=== PATIENT | female | born 1980 | race Caucasian/White ===

== ENCOUNTER 2016-10-24 17:43 | Emergency (ER) | payer BC ==
[~2016-10-24] VITALS: Ht 172.7 cm; Wt 136.1 kg
[~2016-10-24 17:43] MED LIST: AUGMENTIN 500 M1 TAB PO; AUGMENTIN 875875 MG PO; CATAFLAM50 MG PO; CLINDAMYCIN HC300 MG PO; CLINDAMYCIN150 MG PO; FLEXERIL10 MG PO; FLEXERIL5 MG PO; HYDROCODONE BIT1 T11 PO; IBU-8800 MG PO; LIDOCAINE HCL100 M1 MM; MACROBID100 M1 PO; MOTRIN800 MG PO; NAPROSYN500 MG PO; PENICILLIN VK500 MG PO; Peridex 473 ML473 ML PO; ROBAXIN750 MG PO; SEROQUEL300 MG PO; TRAMADOL HCL50 MG PO; VOLTAREN50 M1 PO; ZOLOFT100 MG PO; [UNRECOGNIZED DRUG - OTHER] T
[2016-10-24] MEDS ORDERED: 'PARAFON FORTE500 M1 PO (18:13)
[2016-10-24] MEDS ORDERED: NAPROSYN500 MG PO (18:13)
== END 2016-10-24 20:38 | disposition home or self-care (01) ==
LOC: ED 17:43
DX: M54.42 Lumbago with sciatica, left side (principal); R03.0 Elevated blood-pressure reading, without diagnosis of hypertension; F17.200 Nicotine dependence, unspecified, uncomplicated; Z88.2 Allergy status to sulfonamides; Z88.8 Allergy status to other drugs, medicaments and biological substances; Z91.030 Bee allergy status

== ENCOUNTER 2019-02-18 17:02 | Emergency (ER) | payer BC ==
[~2019-02-18] VITALS: Ht 170.1 cm; Wt 145.1 kg
[~2019-02-18 17:02] MED LIST changes: +'PARAFON FORTE500 M1 PO
[2019-02-18] MEDS ORDERED: PREDNISONE50 MG PO (17:38)
[2019-02-18] MEDS ORDERED: CYCLOBENZAPRINE10 MG PO (17:38)
== END 2019-02-18 17:49 | disposition home or self-care (01) ==
LOC: ED 17:02
DX: S39.012A Strain of muscle, fascia and tendon of lower back, initial encounter (principal); Z91.030 Bee allergy status; Z88.8 Allergy status to other drugs, medicaments and biological substances; Z88.2 Allergy status to sulfonamides; Z79.899 Other long term (current) drug therapy; Z79.2 Long term (current) use of antibiotics; X50.1XXA Overexertion from prolonged static or awkward postures, initial encounter; Y93.89 Activity, other specified; Y92.69 Other specified industrial and construction area as the place of occurrence of the external cause; Y99.8 Other external cause status

== ENCOUNTER 2019-10-17 20:40 | Emergency (ER) | payer BC ==
[~2019-10-17] VITALS: Ht 167.6 cm; Wt 147.0 kg
[~2019-10-17 20:40] MED LIST changes: +CYCLOBENZAPRINE10 MG PO; +PREDNISONE50 MG PO
[2019-10-17] MEDS ORDERED: Motrin,Rufen800 MG PO (21:09)
[2019-10-17] MEDS ORDERED: CEFADROXIL500 M1 PO (21:09)
[2019-10-17] MEDS ORDERED: BACITRACIN28.4 GM T (21:15)
== END 2019-10-17 21:19 | disposition home or self-care (01) ==
LOC: ED 20:40
DX: T23.132A Burn of first degree of multiple left fingers (nail), not including thumb, initial encounter (principal); F17.200 Nicotine dependence, unspecified, uncomplicated; Z91.030 Bee allergy status; Z88.2 Allergy status to sulfonamides; Z88.8 Allergy status to other drugs, medicaments and biological substances; X14.1XXA Other contact with hot air and other hot gases, initial encounter; Y93.89 Activity, other specified; Y92.89 Other specified places as the place of occurrence of the external cause; Y99.0 Civilian activity done for income or pay

== ENCOUNTER 2020-01-08 01:48 | Emergency (ER) | payer BC ==
[~2020-01-08] VITALS: Ht 167.6 cm; Wt 147.0 kg
[~2020-01-08 01:48] MED LIST changes: +BACITRACIN28.4 GM T; +CEFADROXIL500 M1 PO; +Motrin,Rufen800 MG PO
[2020-01-08] MEDS ORDERED: ROBAXIN-750750 MG PO (04:57)
== END 2020-01-08 05:13 | disposition home or self-care (01) ==
LOC: ED 01:48
DX: S16.1XXA Strain of muscle, fascia and tendon at neck level, initial encounter (principal); S50.812A Abrasion of left forearm, initial encounter; S80.811A Abrasion, right lower leg, initial encounter; T14.8XXA Other injury of unspecified body region, initial encounter; Z79.2 Long term (current) use of antibiotics; Z79.899 Other long term (current) drug therapy; V89.2XXA Person injured in unspecified motor-vehicle accident, traffic, initial encounter; Y93.89 Activity, other specified; Y92.89 Other specified places as the place of occurrence of the external cause; Y99.8 Other external cause status

== ENCOUNTER → 2021-06-01 | Outpatient (CLI) | payer BC ==
[~2021-06-01] MED LIST changes: +ROBAXIN-750750 MG PO
== END | disposition home or self-care (01) ==
LOC: US 05-16 13:00
PROVIDERS: ATTEND Family Medicine
DX: M25.431 Effusion, right wrist (principal)

== ENCOUNTER 2022-08-02 08:31 | Emergency (ER) | payer BC ==
[2022-08-02 09:14] LABS: BILIRUBIN Negative (Negative); BLOOD 3+ (Negative); CLARITY Cloudy (Clear); COLOR Red (Yellow); GLUCOSE Negative (Negative); KETONE Trace (Negative); LEUKO ESTERASE Trace (Negative); NITRITE Positive (Negative); UROBILINOGEN 0.2 E.U./dl (0.0-1.0)
[2022-08-02 09:41] LABS: RBC TNTC rbc/hpf (0-2)
[2022-08-02 09:54] LABS: BASO # 0.1 10*3/uL (0.0-0.1); BASO % 0.6 % (0.0-1.0); EOS % 0.1 % (1.0-4.0); HEMATOCRIT 45.7 % (37.0-47.0); LYMPH # 2.6 10*3/uL (1.3-4.4); LYMPH % 21.4 % (27.0-41.0); MEAN CORPUSCULAR HGB 26.9 pg (27.0-31.0); MEAN CORPUSCULAR HGB CONC 32.8 g/dl (33.0-37.0); MEAN PLATELET VOLUME 10.1 fl (9.6-12.3); MONO # 0.6 10*3/uL (0.1-1.0); MONO % 4.5 % (3.0-9.0); NEUT % 73.1 % (47.0-73.0); PLATELET COUNT AUTOMATED 333 10*3/uL (130-400); RED BLOOD COUNT 5.57 10*6/uL (4.10-5.10); RED CELL DISTRI WIDTH 14.1 % (0-14.5); WHITE BLOOD COUNT 12.4 10*3/uL (4.8-10.8)
[2022-08-02 10:13] LABS: ACT PARTIAL THROMBO TIME 31.4 SECONDS (20.0-32.1)
[2022-08-02 10:19] LABS: ALKALINE PHOSPHATASE 130 U/L (46-116); BUN 13 mg/dl (9-23); CHLORIDE 104 mmol/L (98-107); POTASSIUM 4.2 mmol/L (3.4-5.1); SGPT/ALT 30 U/L (10-49); TOTAL PROTEIN 7.3 gm/dL (6.0-8.0)
[2022-08-02 10:24] LABS: BETA-HCG, QUANT < 3.0 mIU/mL (3-10)
[2022-08-02] MEDS ORDERED: MACROBID100 M1 PO (12:44)
== END 2022-08-02 13:15 | disposition home or self-care (01) ==
LOC: ED 08:31
PROVIDERS: Emergency Medicine
DX: N93.8 Other specified abnormal uterine and vaginal bleeding (principal); N39.0 Urinary tract infection, site not specified; Z91.030 Bee allergy status; Z88.2 Allergy status to sulfonamides; Z88.8 Allergy status to other drugs, medicaments and biological substances; Z98.890 Other specified postprocedural states; F32.A Depression, unspecified

== ENCOUNTER → 2023-11-11 | Outpatient (CLI) | payer BC | END | disposition home or self-care (01) | LOC: MAMMO 09:39 | PROVIDERS: ATTEND Obstetrics & Gynecology | DX: Z12.31 Encounter for screening mammogram for malignant neoplasm of breast (principal); N92.0 Excessive and frequent menstruation with regular cycle ==

== ENCOUNTER 2023-12-26 21:33 | Emergency (ER) | payer BC ==
[2023-12-26 22:04] LABS: BASO # 0.1 10*3/uL (0.0-0.1); BASO % 0.7 % (0.0-1.0); EOS % 0.2 % (1.0-4.0); HEMATOCRIT 43.5 % (37.0-47.0); LYMPH # 3.4 10*3/uL (1.3-4.4); LYMPH % 27.9 % (27.0-41.0); MEAN CELL VOLUME 81.8 fl (81.0-99.0); MEAN CORPUSCULAR HGB 26.7 pg (27.0-31.0); MEAN CORPUSCULAR HGB CONC 32.6 g/dl (33.0-37.0); MEAN PLATELET VOLUME 9.9 fl (9.6-12.3); MONO # 0.7 10*3/uL (0.1-1.0); MONO % 5.4 % (3.0-9.0); NEUT % 65.3 % (47.0-73.0); PLATELET COUNT AUTOMATED 360 10*3/uL (130-400); RED BLOOD COUNT 5.32 10*6/uL (4.10-5.10); WHITE BLOOD COUNT 12.3 10*3/uL (4.8-10.8)
[2023-12-26 22:30] LABS: BUN 11 mg/dl (9-23); CHLORIDE 104 mmol/L (98-107); POTASSIUM 3.9 mmol/L (3.4-5.1)
[2023-12-26] MEDS ORDERED: TRINTELLIX20 MG PO (22:33)
[2023-12-26] MEDS ORDERED: QUETIAPINE FUM300 M1 PO (22:33)
[2023-12-26] MEDS ORDERED: METFORMIN HYDR500 MG PO (22:33)
[2023-12-26 22:43] LABS: BETA-HCG, QUANT < 3.0 mIU/mL (3-10)
== END 2023-12-26 22:46 | disposition home or self-care (01) ==
LOC: ED 21:33
PROVIDERS: Physician Assistant Medical
DX: N93.9 Abnormal uterine and vaginal bleeding, unspecified (principal); F32.A Depression, unspecified; R10.2 Pelvic and perineal pain; Z91.030 Bee allergy status; Z88.2 Allergy status to sulfonamides; Z88.8 Allergy status to other drugs, medicaments and biological substances; Z98.890 Other specified postprocedural states

== ENCOUNTER 2024-07-26 16:51 | Emergency (ER) | payer BC ==
[~2024-07-26 16:51] MED LIST changes: +METFORMIN HYDR500 MG PO; +QUETIAPINE FUM300 M1 PO; +TRINTELLIX20 MG PO
== END 2024-07-26 19:00 | disposition left against medical advice (07) ==
LOC: ED 16:51
DX: R10.9 Unspecified abdominal pain (principal); M54.50 Low back pain, unspecified; Z53.21 Procedure and treatment not carried out due to patient leaving prior to being seen by health care provider